=== PATIENT | male | born 1990 | race Caucasian/White ===

== ENCOUNTER 2017-01-22 21:40 | Emergency (ER) | payer MEDICAID ==
[~2017-01-22] VITALS: Ht 162.6 cm; Wt 70.0 kg
[2017-01-22] MEDS ORDERED: LIDOCAINE 2%/EPI MPF (SDV) 20 ML VIAL INJ STA (21:43)
[2017-01-22] MEDS ORDERED: ONDANSETRON (ODT) 4 MG TAB ODT STA (21:43)
[2017-01-22] MEDS ORDERED: SOD CHLORIDE 0.9% 1,000 ML IV STA (21:49)
[2017-01-22] MEDS ORDERED: morphine 4 MG/ML VIAL IV STA ×2 (21:49→23:26)
[2017-01-22] MEDS ORDERED: ONDANSETRON 4 MG INJ IV STA (21:49)
[2017-01-22] MEDS ORDERED: ONDANSETRON 4 MG INJ ONE (21:51)
[2017-01-22 21:56] VITALS: Ht 162.6 cm; Wt 70.0 kg
[2017-01-22] MEDS ORDERED: HYDROCODONE/APAP (10/325) TAB PO ONE (22:00)
[2017-01-22] MEDS ORDERED: DIPHTH/TET/ACEL PERTUSS (ADULT) 0.5 ML VIAL IM ONE (22:00)
[2017-01-22] MEDS ORDERED: SOD CHLORIDE 0.9% 100 ML ONE (22:03)
[2017-01-22] MEDS ORDERED: IOHEXOL 300MG/ML 150 ML BTL ONE (22:03)
[2017-01-22 22:17] LABS: BASOPHIL # 0.1 10^3/ul (0.0-0.1); BASOPHILS % 0.4 % (0.0-2.0); EOSINOPHILS # 0.1 10^3/ul (0.0-0.5); EOSINOPHILS % 0.5 % (0.0-7.0); HEMOGLOBIN 16.1 g/dl (14.0-18.0); LYMPHOCYTES # 3.2 10^3/ul (0.8-2.9); LYMPHOCYTES % 20.6 % (15.0-51.0); MEAN CORPUSCULAR HEMOGLOBIN 28.8 pg (29.0-33.0); MEAN CORPUSCULAR HGB CONC 34.3 g/dl (32.0-37.0); MEAN CORPUSCULAR VOLUME 83.9 fl (82.0-101.0); MEAN PLATELET VOLUME 9.5 fl (7.4-10.4); MONOCYTE # 0.8 10^3/ul (0.3-0.9); MONOCYTES % 5.4 % (0.0-11.0); NEUTROPHIL # 11.1 10^3/ul (1.6-7.5); NEUTROPHILS % 72.2 % (39.0-77.0); PLATELET COUNT 405 10^3/UL (140-415); RED CELL DISTRIBUTION WIDTH 12.8 % (11.5-14.5); WHITE BLOOD COUNT 15.3 10^3/ul (4.8-10.8)
[2017-01-22 22:36] LABS: ALANINE AMINOTRANSFERASE 35 IU/L (13-69); ALBUMIN 4.5 g/dl (3.3-4.9); ALKALINE PHOSPHATASE 85 IU/L (42-121); ANION GAP 13 (8-16); ASPARTATE AMINO TRANSFERASE 34 IU/L (15-46); BILIRUBIN,INDIRECT 0.3 mg/dl (0-1.1); BILIRUBIN,TOTAL 0.3 mg/dl (0.2-1.3); BLOOD UREA NITROGEN 10 mg/dl (7-20); CARBON DIOXIDE 26 mmol/L (21-31); CHLORIDE 104 mmol/L (97-110); CREATININE 1.14 mg/dl (0.61-1.24); ETHANOL < 10.0 mg/dl; GLUCOSE 159 mg/dl (70-220); POTASSIUM 3.3 mmol/L (3.5-5.1); SODIUM 140 mmol/L (135-144); TOTAL PROTEIN 7.9 g/dl (6.1-8.1)
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
[2017-01-22 22:51] LABS: TROPONIN-I < 0.012 ng/ml (0.00-0.12)
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
[2017-01-22 23:25] LABS: INR 1.16; PARTIAL THROMBOPLASTIN TIME 24.8 Sec (25.0-35.0); PROTIME 14.8 Sec (12.2-14.2); PT RATIO 1.2
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
[2017-01-22 23:53] VITALS: BP 124/86; PULSE 102; RESP 19; TEMP 97.5
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
== END 2017-01-22 23:57 | disposition short-term general hospital (02) ==
LOC: E/R 21:40
DX: S06.6X0A Traumatic subarachnoid hemorrhage without loss of consciousness, initial encounter (principal); S42.101A Fracture of unspecified part of scapula, right shoulder, initial encounter for closed fracture; F17.210 Nicotine dependence, cigarettes, uncomplicated; R40.2142 Coma scale, eyes open, spontaneous, at arrival to emergency department; R40.2252 Coma scale, best verbal response, oriented, at arrival to emergency department; R40.2362 Coma scale, best motor response, obeys commands, at arrival to emergency department; V03.10XA Pedestrian on foot injured in collision with car, pick-up truck or van in traffic accident, initial encounter
CPT/HCPCS: 12002; 70450; 71010; 71260; 72125; 73590; 74177; 80048; 80076; 80306; 84484; 85025; 85610; 85730; 86850; 86900; 86901; 90471; 90715; 96374; 96375; 96376; J2270; J2405; J7030; Q9967; Z7502; Z7610

== ENCOUNTER 2017-02-02 13:00 | Emergency (ER) | payer MEDICAID ==
[~2017-02-02] VITALS: Ht 170.2 cm; Wt 76.0 kg
[2017-02-02 13:03] VITALS: Ht 170.2 cm; Wt 76.0 kg
[2017-02-02] MEDS ORDERED: MAGNESIUM CITRATE 300 ML BTL PO ONE (13:30)
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
[2017-02-02] MEDS ORDERED: POLY17PO6 PO (15:18)
[2017-02-02] MEDS ORDERED: DOCU-144 PO (15:18)
[2017-02-02] MEDS ORDERED: DOXY100T20 PO (15:18)
[2017-02-02] MEDS ORDERED: CEFTRIAXONE 250 MG INJ IM ONE (15:30)
== END 2017-02-02 16:01 | disposition home or self-care (01) ==
LOC: FTE 13:00
DX: M25.512 Pain in left shoulder (principal); K59.03 Drug induced constipation
CPT/HCPCS: 29105; 76870; 96372; J0696; Z7502; Z7610